=== PATIENT | female | born 1970 | race Caucasian/White ===

== ENCOUNTER 2020-07-04 19:16 | Emergency (ER) | payer OTHER, SELFPAY ==
--- NOTE | ~2020-07-04 | XR_ITS ---
XR tibia fibula RT 2V 07/04/2020 19:50 INDICATION: Right leg pain PROCEDURE: 2 views right tibia/fibula COMPARISON: No prior studies for comparison. FINDINGS: Fracture, dislocation or subluxation is not identified. The soft tissues appear within norm al limits. No foreign bodies are identified. IMPRESSION: 1: NO ACUTE BONE OR JOINT ABNORMALITY IDENTIFIED. Reviewed, dictated and finalized at location A. BONDING AGENT
[2020-07-04 19:25] VITALS: BP 156/90; PULSE 83; RESP 16; TEMP 36.6; O2SAT 100
[2020-07-04 20:02] LABS: Basophils Percent Auto 0.4 % (0.2-1.2); Eosinophils Absolute Auto 0.2 K/mm3 (0-0.3); Eosinophils Percent Auto 1.7 % (0-4.4); Hemoglobin 13.3 g/dL (12.0-15.0); Immature Granulocyte Absolute 0.04 K/mm3 (0.00-0.031); Immature Granulocyte Percent A 0.4 % (0-0.5); Lymphocytes Absolute Auto 2.78 K/mm3 (0.9-3.2); Lymphocytes Percent Auto 28.4 % (18.3-44.2); Mean Corpuscular HGB Conc 34.1 g/dl (32-36); Mean Corpuscular Hemoglobin 29.4 pg (26-34); Mean Corpuscular Volume 86.3 fl (80-100); Mean Platelet Volume 10.6 fl (7.4-10.4); Monocytes Absolute Auto 0.6 K/mm3 (0.1-0.6); Monocytes Percent Auto 6.5 % (2.6-8.5); Neutrophils Absolute Auto 6.1 K/mm3 (1.3-6.7); Neutrophils Percent Auto 62.6 % (45.5-73.1); Platelet Count Result 315 k/mm3 (150-375); Red Blood Count 4.52 M/mm3 (4.2-5.4); Red Cell Distribution Width 12.8 % (11.5-14.5); White Blood Count 9.8 K/mm3 (4.5-10.0)
--- NOTE | 2020-07-04 20:04 | ED.LOWEXIN ---
HPI - Extremity Injury (Lower) General Chief Complaint: Extremity Injury, Lower Stated Complaint: rll pain-dvt Time Seen by Provider: 07/04/20 19:25 Source: RN notes reviewed History of Present Illness HPI Narrative: Patient presents to emergency department from home for right lower extremity pain. Patient states pain began this morning the pain is located over the right anterior lower leg proximal to the ankle and wraps around to the right calf with a feeling of tightness in the calf she denies any trauma or injury denies any wounds or overlying redness she denies any pain in the foot or the knee and no pain with movement of the ankle or the knee she denies any fevers or chills chest pain shortness of breath or any other symptoms patient is concerned about a possible blood clot as she states there is a history of blood clots in her family but denies ever having a blood clot herself Related Data Home Medications Medication Instructions Recorded Confirmed cetirizine 10 mg capsule 10 mg PO DAILY 05/30/19 02/28/20 cholecalciferol (vitamin D3) 50 2,000 unit PO DAILY 05/30/19 02/28/20 mcg (2,000 unit) tablet Allergies Allergy/AdvReac Type Severity Reaction Status Date / Time erythromycin base Allergy Unknown Hives Verified 07/04/20 19:31 hydrocodone Allergy Unknown Rash Verified 07/04/20 19:31 meloxicam Allergy Unknown Hives Verified 07/04/20 19:31 sulfamethizole Allergy Unknown Back Pain Verified 07/04/20 19:31 sulfamethoxazole Allergy Unknown Back Pain Verified 07/04/20 19:31 trimethoprim Allergy Unknown Rash Verified 07/04/20 19:31 nabumetone Allergy Hives Verified 07/04/20 19:31 Review of Systems Review of Systems: Narrative: Gen.: Denies fevers or chills ENT: Denies congestion Respiratory: Denies shortness of breath or cough CV: Denies chest pain or palpitations GI: Denies abdominal pain nausea, emesis Musculoskeletal: See HPI Neuro: Denies numbness, tingling, weakness or focal weakness Skin: Denies rash Except as documented, all other systems reviewed and negative PMFSH Past Medical History Medical History Allergies Asthma Bronchitis Chicken pox Depression Heartburn Herpes HLD (hyperlipidemia) HTN (hypertension) Hyperglycemia Hypothyroidism Obesity Osteoarthritis PCOS (polycystic ovarian syndrome) PVC (premature ventricular contraction) Vitamin D deficiency Surgical History Surgical History (Updated 05/30/19 @ 07:17 by Erin Mei CMA) H/O arthroscopic knee surgery H/O breast biopsy H/O cone biopsy of cervix History of dilatation and curettage History of hysterectomy Family History Family History (Updated 05/30/19 @ 07:19 by Erin Mei CMA) Father Family history of Alzheimer's disease Mother Renal failure Rheumatoid arthritis Renal transplant, status post Social History Social History Smoking status: Former smoker Smoking end date: 07/12/98 Alcohol intake: current Exam Narrative: Exam Narrative: APPEARANCE: No acute distress, nontoxic, resting in bed Eyes: EOMI HEENT: Normocephalic, atraumatic, RESPIRATORY: No respiratory distress MUSCULOSKELETAl: Tender palpation over the right anterior lower leg just proximal to the ankle no swelling or erythema seen no wounds no tenderness of the ankle or knee with full range of motion of both, tender to palpation over the right posterior calf dorsalis pedis pulse 2+ neurovascular intact NEURO: Awake and alert. Following commands, speech normal, no focal deficits SKIN:: Warm, dry. Normal Color no rash or lesions Course Course Emergency Course: Called and discussed with Dr. Pierre presentation work-up agrees with plan for Lovenox with ultrasound and Called and discussed with Dr. Billingsley radiology as well as radiology staff since this is a holiday we will schedule the patient for a 7 AM ultrasound the morning ultrasound
[2020-07-04 20:09] LABS: Partial Thromboplastin Time 25.9 SECONDS (22.3-36.8); Prothrombin Time 13.8 Seconds (11.1-14.7)
[2020-07-04 20:11] LABS: Anion Gap 7 mmol/L (8-16); Blood Urea Nitrogen 14 mg/dL (7-17); Calcium 9.7 mg/dL (8.4-10.2); Carbon Dioxide 30 mmol/L (22-30); Chloride 101 mmol/L (98-107); Estimated CRCL calculation 85 ml/min; Estimated Glomerular Filt Rate > 60; Glucose 153 mg/dL (65-105); Potassium 4.5 mmol/L (3.4-5.0); Sodium 138 mmol/L (137-145)
[2020-07-04] MEDS: ENOXAPARIN 120 MG/0.8 ML SYRINGE SUB-Q (21:12)
[2020-07-04 21:27] VITALS: BP 149/84; PULSE 78; RESP 20; O2SAT 97
== END 2020-07-04 21:29 | disposition home or self-care (01) ==
PROVIDERS: Emergency Provider Emergency Medicine; PCP Internal Medicine
DX: M79.661 Pain in right lower leg (principal); J45.909 Unspecified asthma, uncomplicated; E78.5 Hyperlipidemia, unspecified; I10 Essential (primary) hypertension; E03.9 Hypothyroidism, unspecified; M19.90 Unspecified osteoarthritis, unspecified site; E28.2 Polycystic ovarian syndrome; E55.9 Vitamin D deficiency, unspecified; E66.9 Obesity, unspecified; Z68.42 Body mass index [BMI] 45.0-49.9, adult; Z87.891 Personal history of nicotine dependence
CPT/HCPCS: 36415; 73590; 80048; 85025; 85610; 85730; 93971; 96372; 99284; J1650

== ENCOUNTER 2020-07-05 07:35 | Outpatient (CLI) | payer OTHER, SELFPAY ==
--- NOTE | ~2020-07-05 | US_ITS ---
CORRECTED REPORT REPORT MOVED FROM [id number] [place] [facility] [place] US venous doppler LE RT EXAM DATE: 07/05/2020 08:12 INDICATION: Right calf pain. TECHNIQUE: Multiple grayscale, color flow and Doppler images of the right lower extremity deep venous system were obtained and reviewed. There is no prior study for comparison. FINDINGS: The right common femoral, femoral and profunda veins demonstrate normal color flow, respiratory variation, augmentation and compressibility. Compressibility, color flow confirmed within the right popliteal, posterior tibial, peroneal, and greater saphenous veins. IMPRESSION: 1. No right lower extremity deep venous thrombosis. Reviewed, dictated and finalized at location A. H NP VERONICA
== END 2020-07-05 07:36 | disposition home or self-care (01) ==
LOC: ANHIMG 07:40
PROVIDERS: PCP Internal Medicine; Visit Provider Emergency Medicine
DX: M79.604 Pain in right leg (principal)
CPT/HCPCS: 93971

== ENCOUNTER 2021-08-10 12:00 | Emergency (ER) | payer OTHER, SELFPAY ==
[2021-08-10 12:09] VITALS: BP 147/84; PULSE 77; RESP 16; TEMP 36.2; O2SAT 99
--- NOTE | 2021-08-10 13:01 | ED.GENADULT ---
HPI - General Adult General Chief complaint: Upper Respiratory Infection Stated complaint: Sinus Source: patient Mode of arrival: ambulatory Limitations: no limitations History of Present Illness HPI narrative: Patient is a 51-year-old female presents to the [facility] via POV for evaluation of a sinus problem that began over 1 week ago. Additionally, she reports sinus pain, sinus pressure, intermittent, frontal headaches, and dark yellow sinus drainage. Motrin, Tylenol, and Zyrtec provides some relief. Symptoms are worse in the mornings and with bending forward. She is fully vaccinated against Covid. She is also received Covid booster. Of note, patient tested positive for Covid on 07/25/2021. Related Data Allergies Allergy/AdvReac Type Severity Reaction Status Date / Time erythromycin base Allergy Unknown Hives Verified 08/10/21 12:24 hydrocodone Allergy Unknown Rash Verified 08/10/21 12:24 meloxicam Allergy Unknown Hives Verified 08/10/21 12:24 sulfamethizole Allergy Unknown Back Pain Verified 08/10/21 12:24 sulfamethoxazole Allergy Unknown Back Pain Verified 08/10/21 12:24 trimethoprim Allergy Unknown Rash Verified 08/10/21 12:24 nabumetone Allergy Hives Verified 08/10/21 12:24 Review of Systems Review of Systems: Denies fever, chills, sweats, change in appetite, p.o. intake, severe persistent headaches, sore throat, voice changes, ear pain, ear drainage, dizziness, LOC, cough, wheezing, shortness of breath, abdominal pain, nausea, vomiting, diarrhea, chest pain, and heart palpitations PMFSH Past Medical History Medical History Allergies Asthma Bronchitis Cervical stenosis of spinal canal Chicken pox Depression GERD (gastroesophageal reflux disease) Heartburn Herpes HLD (hyperlipidemia) HTN (hypertension) Hyperglycemia Hypothyroidism Obesity Osteoarthritis PCOS (polycystic ovarian syndrome) PVC (premature ventricular contraction) Vitamin D deficiency Surgical History Surgical History H/O arthroscopic knee surgery H/O breast biopsy H/O cone biopsy of cervix History of dilatation and curettage History of hysterectomy Family History Family History Father Family history of Alzheimer's disease Mother Renal failure Rheumatoid arthritis Renal transplant, status post Social History Social History Social History: Caffeine-tea/soda Smoking status: Former smoker Smoking end date: 07/12/98 Alcohol intake: current Alcohol use details: occasional Comments I have reviewed and agree with the patient's past medical, surgical, social, and family hx as documented by the RN. There is no relevant family history pertinent to the presenting complaint. Exam Narrative: GENERAL: Well-appearing, well-nourished, and in no acute distress. Appears fatigued. HEAD: Normocephalic, atraumatic. Moderate frontal, ethmoid, and maxillary sinus tenderness appreciated upon palpation. No swelling appreciated. EYES: PERRLA and EOMI. No evidence of erythema, swelling, or drainage. ENT: Bilateral external ears and ear canals normal. Bilateral TMs are normal.No TM perforation. Nares patent. No epistaxis. Bilateral turbinates are moderately edematous and erythematous. Moderate amount of yellow mucus noted to bilateral naris. Mucous membranes moist and pink. Uvula is midline without erythema and swelling. No evidence of petechial rash, cobblestoning, lesions, ulcers, erythema, swelling, exudates, peritonsillar abscess, tenting, or drooling. Breath odor and voice normal. NECK: Supple. Bilateral submandibular lymphadenopathy palpated. No nuchal rigidity appreciated. CHEST: Bilateral lung gandhi are clear to auscultation. No respiratory distress. No evidence of cough or pleuritic cp up
== END 2021-08-10 13:10 | disposition home or self-care (01) ==
PROVIDERS: Emergency Provider Nurse Practitioner Family; PCP Internal Medicine
DX: J01.90 Acute sinusitis, unspecified (principal); J45.909 Unspecified asthma, uncomplicated; K21.9 Gastro-esophageal reflux disease without esophagitis; E78.5 Hyperlipidemia, unspecified; I10 Essential (primary) hypertension; E03.9 Hypothyroidism, unspecified; M19.90 Unspecified osteoarthritis, unspecified site; E28.2 Polycystic ovarian syndrome; Z86.16 Personal history of COVID-19; Z87.891 Personal history of nicotine dependence; R12 Heartburn; E55.9 Vitamin D deficiency, unspecified
CPT/HCPCS: 99213; G0463

== ENCOUNTER 2021-08-23 10:14 | Emergency (ER) | payer OTHER, SELFPAY ==
[2021-08-23 10:23] VITALS: BP 153/109; PULSE 81; RESP 16; TEMP 36.3; O2SAT 99
--- NOTE | 2021-08-23 10:57 | ED.GENADULT ---
HPI - General Adult General Chief complaint: Skin/Abscess/Foreign Body Stated complaint: allergic reaction to medication Source: patient Mode of arrival: ambulatory Limitations: no limitations History of Present Illness HPI narrative: Patient presents for evaluation of pruritic rash. She indicates on 07/25/2021 she tested positive for Covid. She developed some sinus congestion and drainage about a week later she started doxycycline. She developed some GI symptoms and contacted her PCP, who then changed her to Augmentin. Approximately 4 days into the medication she developed a pruritic rash to the left forearm and low back. Since that time rash has become more widespread but is still pruritic in nature. No difficulty breathing or swallowing. She has been taking pepcid and zyrtec without considerable improvement. She also tried an unknown topical cream without significant reduction in her itching. Her sinus symptoms are markedly improved. Related Data Home Medications Medication Instructions Recorded Confirmed cetirizine [Zyrtec] 10 mg PO DAILY 08/10/21 08/23/21 cholecalciferol (vitamin D3) 10 mcg PO 3XW 08/10/21 08/23/21 famotidine [Pepcid] 20 mg PO DAILY 08/10/21 08/23/21 Allergies Allergy/AdvReac Type Severity Reaction Status Date / Time meloxicam Allergy Severe Swelling Verified 08/23/21 10:21 of Lip/Tongue/Throat erythromycin base Allergy Mild Hives Verified 08/23/21 10:21 hydrocodone Allergy Mild Rash Verified 08/23/21 10:21 nabumetone Allergy Mild Hives Verified 08/23/21 10:21 sulfamethizole Allergy Mild Back Pain Verified 08/23/21 10:21 sulfamethoxazole Allergy Mild Back Pain Verified 08/23/21 10:21 trimethoprim Allergy Mild Rash Verified 08/23/21 10:21 amoxicillin [From Augmentin] Allergy Rash Verified 08/23/21 10:21 clavulanic acid Allergy Rash Verified 08/23/21 10:21 [From Augmentin] Review of Systems Review of Systems: CONSTITUTIONAL: Denies fever, chills, or sweats. EYES: Denies visual changes, redness, or discharge. ENT: Denies rhinorrhea, congestion, sore throat, or otalgia. CARDIOVASCULAR: Denies chest pain, palpitations, or edema. RESPIRATORY: Denies cough or dyspnea. GASTROINTESTINAL: Denies abdominal pain, nausea, vomiting, or diarrhea. GENITOURINARY: Denies dysuria or hematuria. SKIN: Reports pruritic rash to back and BLE MUSCULOSKELETAL: Denies back pain, joint pain, or myalgia. NEUROLOGIC: Denies headache, numbness, dizziness, or weakness. PSYCHIATRIC: Denies anxiety or depression. [facility] Past Medical History Medical History Allergies Asthma Bronchitis Cervical stenosis of spinal canal Chicken pox Depression GERD (gastroesophageal reflux disease) Heartburn Herpes HLD (hyperlipidemia) HTN (hypertension) Hyperglycemia Hypothyroidism Obesity Osteoarthritis PCOS (polycystic ovarian syndrome) PVC (premature ventricular contraction) Vitamin D deficiency Surgical History Surgical History H/O arthroscopic knee surgery H/O breast biopsy H/O cone biopsy of cervix History of dilatation and curettage History of hysterectomy Family History Family History Father Family history of Alzheimer's disease Mother Renal failure Rheumatoid arthritis Renal transplant, status post Social History Social History Social History: Caffeine-tea/soda Smoking status: Former smoker Smoking end date: 07/12/98 Alcohol intake: current Alcohol use details: occasional Exam Narrative: GENERAL: Well-appearing, well-nourished, and in no acute distress. HEAD: Normocephalic, atraumatic. EYES: PERRLA and EOMI. ENT: Nares clear, no rhinorrhea or epistaxis. Mucous membranes moist. Oropharynx without tonsillar hypertrophy exudate or other lesion
[2021-08-23] MEDS: methylPREDNISolone SOD SUCC 125 MG VIAL IM (11:04)
== END 2021-08-23 11:24 | disposition home or self-care (01) ==
PROVIDERS: Emergency Provider Nurse Practitioner; PCP Internal Medicine
DX: R21 Rash and other nonspecific skin eruption (principal); T78.40XA Allergy, unspecified, initial encounter; Z87.891 Personal history of nicotine dependence; J45.909 Unspecified asthma, uncomplicated; K21.9 Gastro-esophageal reflux disease without esophagitis; E78.5 Hyperlipidemia, unspecified; I10 Essential (primary) hypertension; E03.9 Hypothyroidism, unspecified; M19.90 Unspecified osteoarthritis, unspecified site; E28.2 Polycystic ovarian syndrome; E55.9 Vitamin D deficiency, unspecified; M48.02 Spinal stenosis, cervical region
CPT/HCPCS: 96372; 99213; G0463; J2930

== ENCOUNTER → 2022-03-11 10:22 | Outpatient (CLI) | payer OTHER, SELFPAY ==
--- NOTE | ~2022-03-11 | XR_ITS ---
XR ankle LT min 3V DATE: 03/11/2022 10:37 INDICATION: Left ankle pain TECHNIQUE: 4 views COMPARISON: None FINDINGS: Plantar and posterior calcaneal enthesopathy. No fracture or dislocation of the ankle or disruption of the ankle mortise. No periosteal reaction or bone destruction. IMPRESSION: Plantar and posterior calcaneal enthesopathy Reviewed, dictated and finalized at location B.
== END ==
PROVIDERS: PCP Clinical Nurse Specialist; Visit Provider Clinical Nurse Specialist
DX: M25.572 Pain in left ankle and joints of left foot (principal); M77.32 Calcaneal spur, left foot
CPT/HCPCS: 73610

== ENCOUNTER 2022-04-11 16:25 | Emergency (ER) | payer OTHER, SELFPAY ==
--- NOTE | 2022-04-11 16:28 | ED.URI ---
HPI - URI/Sore Throat General Chief Complaint: Upper Respiratory Infection Stated Complaint: drainage,cough,fever Time Seen by Provider: 04/11/22 16:47 Source: patient and RN notes reviewed Mode of arrival: ambulatory Limitations: no limitations History of Present Illness HPI Narrative: 51-year-old female presents concern for 3-week history of cough, chest congestion, nasal congestion. Reports she took a Z-Rogelio approximately 10 days into her illness that was prescribed to her over the phone by her physician. She denies that the antibiotic helped her symptoms. She reports she used her albuterol inhaler last night because she felt like she could not get a full breath. She reports feeling fatigued and fuzzy . She has not taken any [id number] medications or interventions. MD elicited complaint: cough and nasal congestion Related Data Home Medications Medication Instructions Recorded Confirmed cetirizine 10 mg tablet (Zyrtec) 10 mg PO DAILY 08/10/21 04/01/22 cholecalciferol (vitamin D3) 10 10 mcg PO 3XW 08/10/21 04/01/22 mcg (400 unit) capsule famotidine 20 mg tablet (Pepcid) 20 mg PO DAILY 08/10/21 04/01/22 Allergies Allergy/AdvReac Type Severity Reaction Status Date / Time meloxicam Allergy Severe Swelling Verified 04/01/22 10:53 of Lip/Tongue/Throat erythromycin base Allergy Mild Hives Verified 04/01/22 10:53 hydrocodone Allergy Mild Rash Verified 04/01/22 10:53 nabumetone Allergy Mild Hives Verified 04/01/22 10:53 sulfamethizole Allergy Mild Back Pain Verified 04/01/22 10:53 sulfamethoxazole Allergy Mild Back Pain Verified 04/01/22 10:53 trimethoprim Allergy Mild Rash Verified 04/01/22 10:53 amoxicillin [From Augmentin] Allergy Rash Verified 04/01/22 10:53 clavulanic acid Allergy Rash Verified 04/01/22 10:53 [From Augmentin] Review of Systems Review of Systems: CONSTITUTIONAL: Reports malaise. Denies chills, sweats, or fever. EYES: Denies visual changes, redness, or discharge. ENT: Reports rhinorrhea, congestion. Denies sinus pain, otalgia and sore throat. CARDIOVASCULAR: Denies chest pain, palpitations, or edema. RESPIRATORY: Reports productive cough. Denies dyspnea. GASTROINTESTINAL: Denies abdominal pain, nausea, vomiting, diarrhea SKIN: Denies rash or itching. MUSCULOSKELETAL: Denies myalgia. NEUROLOGIC: Denies headache. All systems reviewed & are unremarkable except as noted in HPI and below PMFSH Past Medical History Medical History Allergies Asthma Bronchitis Cervical stenosis of spinal canal Chicken pox Depression GERD (gastroesophageal reflux disease) Heartburn Herpes HLD (hyperlipidemia) HTN (hypertension) Hyperglycemia Hypothyroidism Obesity Osteoarthritis PCOS (polycystic ovarian syndrome) PVC (premature ventricular contraction) Vitamin D deficiency Surgical History Surgical History H/O arthroscopic knee surgery H/O breast biopsy H/O cone biopsy of cervix History of dilatation and curettage History of hysterectomy Family History Family History Father Family history of Alzheimer's disease Mother Renal failure Rheumatoid arthritis Renal transplant, status post Social History Social History Social History: Caffeine-tea/soda Smoking status: Former smoker Smoking end date: 07/12/98 Alcohol intake: current Alcohol use details: occasional Comments At time of signature, agree with nursing past medical, surgical, social and family history. There is no relevant family history pertinent to the presenting complaint Exam Narrative: GENERAL: Well-appearing, well-nourished, and in no acute distress. HEAD: Normocephalic EYES: PERRLA, conjunctivae clear ENT: Nares clear, turbinates edematous and erythematous. Mucous membranes moist. TM pea
[2022-04-11 16:36] VITALS: BP 139/99; PULSE 92; RESP 20; TEMP 36.4; O2SAT 98
== END 2022-04-11 16:55 | disposition home or self-care (01) ==
PROVIDERS: Emergency Provider Nurse Practitioner; PCP Internal Medicine
DX: J40 Bronchitis, not specified as acute or chronic (principal); Z87.891 Personal history of nicotine dependence; J45.909 Unspecified asthma, uncomplicated; K21.9 Gastro-esophageal reflux disease without esophagitis; E78.5 Hyperlipidemia, unspecified; I10 Essential (primary) hypertension; M19.90 Unspecified osteoarthritis, unspecified site; E28.2 Polycystic ovarian syndrome; E66.9 Obesity, unspecified; Z68.36 Body mass index [BMI] 36.0-36.9, adult; E55.9 Vitamin D deficiency, unspecified
CPT/HCPCS: 99213; G0463

== ENCOUNTER 2022-05-14 15:35 | Observation (INO) | payer OTHER, SELFPAY ==
[2022-05-14] VITALS (24 sets, daily range): BP systolic 126–186; BP diastolic 67–103; PULSE 63–95; RESP 11–20; TEMP 37.1; O2SAT 96–100
--- NOTE | ~2022-05-14 | NM_ITS ---
EXAMINATION: NM felicia stress w perfusion DATE: 05/15/2022 12:31 INDICATION: Chest pain. TECHNIQUE: Rest images were obtained following intravenous administration of 11.7 mCi Tc99m tetrofosm in (Myoview). The patient was infused intravenously with Lexiscan (regadenoson). Then, 34.5 mCi Tc99m tetrofosmin (Myoview) was administered intravenously, and supine and prone stress images were obtain ed. Data was reconstructed into short axis and horizontal and vertical long axis SPECT images. Gated SPECT images were also obtained. COMPARISON: None. FINDINGS: There is no definite reversible or fixed perfusion abnormality to suggest ischemia or infar ction. There is no segmental wall motion abnormality. Left ventricular ejection fraction measures > 70%. IMPRESSION: 1. No definite ischemia or infarct. 2. Normal left ventricular ejection fraction measuring >70%. Reviewed, dictated and finalized at location A.
--- NOTE | ~2022-05-14 | XR_ITS ---
EXAMINATION: XR chest 2V DATE: 05/14/2022 16:04 INDICATION: Left arm and neck pain. TECHNIQUE: Frontal and lateral views of the chest were obtained. COMPARISON: Chest 2 views 07/18/2012 FINDINGS: The chest demonstrates clear lungs without pneumonia, pleural effusion, or pneumothorax. Th e heart size is normal. IMPRESSION: 1. No acute cardiopulmonary disease. Reviewed, dictated and finalized at location A.
--- NOTE | 2022-05-14 15:49 | ECG_ITS ---
Measurements Intervals [place] Rate: 71 P: 34 GA: 149 QRS: 11 QRSD: 78 T: 25 QT: 378 QTc: 413 Interpretive Statements SINUS RHYTHM LOW QRS VOLTAGE IN PRECORDIAL LEADS BORDERLINE T WAVE ABNORMALITY- ANT/INF LEADS BORDERLINE ECG NO PREVIOUS ECG AVAILABLE FOR COMPARISON Electronically Signed On 05-14-2022 15:56:26 CDT by Frandy Johnson D.O.
--- NOTE | 2022-05-14 16:33 | ED.GENADULT ---
HPI - General Adult General Chief complaint: Unspecified Stated complaint: pain radiating from neck down arm Time Seen by Provider: 05/14/22 16:04 History of Present Illness HPI narrative: Patient is a 51-year-old female with a history of hypertension, hyperlipidemia, PCOS presenting with chest pain. Patient states that she was at work when she first noticed some pain in her left upper arm that radiated to her elbow and left shoulder. States that she then developed pain in the left side of her chest and left neck. States it was associated with some lightheadedness. 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 She was advised to come to the ER for further evaluation. Currently, she states that she still has mild intermittent chest pain. States that she continues to have pain in her left upper arm. Denies fevers, shortness of breath, abdominal pain, nausea or vomiting, dysuria, diarrhea, leg swelling. Related Data Home Medications Medication Instructions Recorded Confirmed cetirizine 10 mg tablet (Zyrtec) 10 mg PO HS 08/10/21 05/15/22 cholecalciferol (vitamin D3) 10 10 mcg PO 3XW 08/10/21 05/15/22 mcg (400 unit) capsule famotidine 20 mg tablet (Pepcid) 20 mg PO HS 08/10/21 05/15/22 Motrin IB 250.125 mg PO HS 05/15/22 05/15/22 metformin 500 mg tablet,extended 500 mg PO HS 05/15/22 05/15/22 release 24 hr simvastatin 40 mg tablet 40 mg PO HS 05/15/22 05/15/22 Allergies Allergy/AdvReac Type Severity Reaction Status Date / Time meloxicam Allergy Severe Swelling Verified 04/01/22 10:53 of Lip/Tongue/Throat erythromycin base Allergy Mild Hives Verified 04/01/22 10:53 hydrocodone Allergy Mild Rash Verified 04/01/22 10:53 nabumetone Allergy Mild Hives Verified 04/01/22 10:53 sulfamethizole Allergy Mild Back Pain Verified 04/01/22 10:53 sulfamethoxazole Allergy Mild Back Pain Verified 04/01/22 10:53 trimethoprim Allergy Mild Rash Verified 04/01/22 10:53 amoxicillin [From Augmentin] Allergy Rash Verified 04/01/22 10:53 clavulanic acid Allergy Rash Verified 04/01/22 10:53 [From Augmentin] Review of Systems Review of Systems: All systems reviewed & are unremarkable except as noted in HPI and below PMFSH Past Medical History Medical History (Updated 05/16/22 @ 14:09 by No Ford MD) Allergies Asthma Bronchitis Cervical stenosis of spinal canal Chicken pox Depression GERD (gastroesophageal reflux disease) Heartburn Herpes HLD (hyperlipidemia) HTN (hypertension) Hyperglycemia Hypothyroidism Obesity Osteoarthritis PCOS (polycystic ovarian syndrome) PVC (premature ventricular contraction) Vitamin D deficiency Surgical History Surgical History H/O arthroscopic knee surgery H/O breast biopsy H/O cone biopsy of cervix History of dilatation and curettage History of hysterectomy Family History Family History Father Family history of Alzheimer's disease Mother Renal failure Rheumatoid arthritis Renal transplant, status post Social History Social History Social History: Caffeine-tea/soda Smoking packs per day: 0.5 Smoking cigarettes per day: 10.0 Years smoked: 10 Smoking pack-years: 5.00 Smoking status: Former smoker Tobacco type: cigarettes Second hand tobacco smoke exposure: No Smoking end date: 07/12/98 Alcohol intake: former Alcohol use details: occasional Substance use: never Has the Lack of Transportation Kept You From Medical Appointments or From Getting Medications?: No Within the Past 12 Months, Were You Worried Whether Your Food Would Run Out Before You Got Money to Buy More?: Never True What is Your Housing Situation Today?: I Have Housing Are You Worried That in the Next 2 Months, You May Not Have Your Own Housing to Live In?: N
[2022-05-14 17:00] LABS: Basophils Percent Auto 0.5 % (0.2-1.2); Eosinophils Absolute Auto 0.2 K/mm3 (0-0.3); Eosinophils Percent Auto 2.4 % (0-4.4); Hematocrit 38.8 % (37.0-47.0); Hemoglobin 12.9 g/dL (12.0-15.0); Immature Granulocyte Absolute 0.02 K/mm3 (0.00-0.031); Immature Granulocyte Percent A 0.2 % (0-0.5); Lymphocytes Absolute Auto 2.73 K/mm3 (0.9-3.2); Lymphocytes Percent Auto 31.6 % (18.3-44.2); Mean Corpuscular HGB Conc 33.2 g/dl (32-36); Mean Corpuscular Hemoglobin 28.9 pg (26-34); Mean Corpuscular Volume 86.8 fl (80-100); Mean Platelet Volume 10.8 fl (7.4-10.4); Monocytes Absolute Auto 0.5 K/mm3 (0.1-0.6); Neutrophils Absolute Auto 5.1 K/mm3 (1.3-6.7); Neutrophils Percent Auto 59.3 % (45.5-73.1); Platelet Count Result 326 k/mm3 (150-375); Red Blood Count 4.47 M/mm3 (4.2-5.4); Red Cell Distribution Width 13.2 % (11.5-14.5); White Blood Count 8.6 K/mm3 (4.5-10.0)
[2022-05-14 17:10] LABS: Partial Thromboplastin Time 26.3 SECONDS (22.3-36.8); Prothrombin Time 12.5 Seconds (11.1-14.7)
[2022-05-14 17:13] LABS: Alanine Aminotransferase 32 U/L (6-35); Albumin Level 4.5 g/dL (3.5-5.1); Alkaline Phosphatase 60 U/L (38-126); Anion Gap 11 mmol/L (8-16); Aspartate Amino Transferase 42 U/L (14-36); Blood Urea Nitrogen 14 mg/dL (7-17); Calcium 9.1 mg/dL (8.4-10.2); Carbon Dioxide 27 mmol/L (22-30); Chloride 100 mmol/L (98-107); Estimated CRCL calculation 93 ml/min; Estimated Glomerular Filt Rate > 60; Glucose 144 mg/dL (65-110); Lipase 151 U/L (23-300); Potassium 4.4 mmol/L (3.4-5.0); Sodium 138 mmol/L (137-145)
[2022-05-14 17:24] LABS: Troponin I < 0.012 ng/mL (0.000-0.034)
--- NOTE | 2022-05-14 18:40 | PC.NURSE ---
Patient denies pain after IV Tylenol but does c/o mild nausea. Declines any nausea pain medication at this time. Patient encouraged to let me know if she changes her mind.
--- NOTE | 2022-05-14 19:14 | PC.NURSE ---
Patient report given to KRISHNA Martinez. All questions answered and care of patient transferred.
[2022-05-14 19:45] LABS: Troponin I < 0.012 ng/mL (0.000-0.034)
--- NOTE | 2022-05-14 21:04 | PM.IMHP ---
H&P: HPI History of Present Illness Date/Time: 05/14/22 21:04 Chief Complaint: chest pain Narrative: This is a 51-year-old female with past medical history significant for type diabetes mellitus, hypertension, dyslipidemia, morbid obesity, gastroesophageal reflux disease, polycystic ovarian syndrome. patient presents to the emergency room due to chest pain localized to the precordial area with radiation to the jaw shoulder and arm on the left side accompanied by lightheadedness she rates it at for 4/10 intensity,has been present for the last several hours, denies any nausea, vomiting, abdominal pain, no syncope, or near syncope, she has had bilateral ankle swelling, no PND, no orthopnea, no fevers, no rigors, no chills. preliminary workup has been essentially nonrevealing. patient has been admitted for further evaluation management and treatment. an EKG was reported as: SINUS RHYTHM LOW QRS VOLTAGE IN PRECORDIAL LEADS BORDERLINE T WAVE ABNORMALITY- ANT/INF LEADS BORDERLINE ECG NO PREVIOUS ECG AVAILABLE FOR COMPARISON Review of Systems Review of Systems: Precordial chest pain. Constitutional: Constitutional: Denies chills, Denies fatigue, Denies fever(s), Denies malaise, Denies night sweats, Denies poor appetite and Denies weakness Eyes: Eyes: Denies change in vision ENT: Denies dysphagia, Denies vertigo, Denies dizziness and Denies odynophagia Cardiovascular: Cardiovascular: Reports chest pain, Denies syncope, Denies rapid heart rate, Reports pedal edema, Denies irregular heart rhythm, Reports lightheadedness, Denies palpitations, Denies dyspnea, Denies dyspnea on exertion and Denies orthopnea Respiratory: Respiratory: Denies chest congestion, Denies cough, Denies pain on inspiration, Denies dyspnea and Denies wheezing Gastrointestinal: Gastrointestinal: Denies abdominal pain, Denies dyspepsia, Denies heartburn, Denies diarrhea, Denies nausea and Denies vomiting Genitourinary: Genitourinary: Denies dysuria Musculoskeletal: Musculoskeletal: Denies myalgias, Denies arthralgias and Denies muscle weakness Integumentary/Breasts: Skin/Breast: Denies rash Neurologic: Denies focal weakness and Denies Sensory deficit (Neuro) Psychiatric: Psychiatric: Reports no additional psychiatric complaints and Reports as per HPI Endocrine: Endocrine: Denies cold intolerance, Denies flushing, Denies heat intolerance, Denies polyphagia, Denies polydipsia and Denies palpitations Hematologic/Lymphatic: Hematologic/Lymphatic: Reports no additional hematologic/lymphatic complaints and Reports as per HPI Allergic/Immunologic: Allergic/Immunologic: Reports no additional allergic/immunologic complaints and Reports as per HPI [facility] Past Medical History Medical History (Updated 05/15/22 @ 02:34 by Robin Triplett MD) Allergies Asthma Bronchitis Cervical stenosis of spinal canal Chicken pox Depression GERD (gastroesophageal reflux disease) Heartburn Herpes HLD (hyperlipidemia) HTN (hypertension) Hyperglycemia Hypothyroidism Obesity Osteoarthritis PCOS (polycystic ovarian syndrome) PVC (premature ventricular contraction) Vitamin D deficiency Surgical History Surgical History H/O arthroscopic knee surgery H/O breast biopsy H/O cone biopsy of cervix History of dilatation and curettage History of hysterectomy Family History Family History Father Family history of Alzheimer's disease Mother Renal failure Rheumatoid arthritis Renal transplant, status post Social History Social History Social History: Caffeine-tea/soda Smoking packs per day: 0.5 Smoking cigarettes per day: 10.0 Years smoked: 10 Smoking pack-years: 5.00 Smoking status: Former smoker Tobacco type: cigarettes Second hand tobacco smoke exposure: No Smoking end date: 07/12/98
[2022-05-14 21:21] LABS: SARS-CoV-2 RNA PCR Negative
[2022-05-14 22:17] LABS: Troponin I < 0.012 ng/mL (0.000-0.034)
[2022-05-15] VITALS (14 sets, daily range): BP systolic 131–155; BP diastolic 59–85; PULSE 67–109; RESP 16–18; TEMP 36–36.6; O2SAT 93–99; BMI 44.9
--- NOTE | 2022-05-15 | ECHO_ITS ---
Patient Info Name: Suzan Polk Age: 51 years : 1970 Gender: Female Ht: 65 in Wt: 269 lbs BSA: 2.43 m2 HR: 81 bpm BP: 155 / 82 mmHg Heart Rhythm: Sinus Rhythm Technical Quality: Fair Exam Date: 05/15/2022 2:37 PM Exam Location: [facility] Patient Status: Outpatient Admit Date: 05/14/2022 Staff Ordering Physician: Carmina Barriga MD Balancer Scale: Jenn Mckenzie RDCS Attending Provider: Robin Triplett MD Exam Type: CA echo dop color flow w con Study Info Indications R07.9 - Chest pain, unspecified Complete two-dimensional, color flow and Doppler transthoracic echocardiogram is performed with contrast to opacify the left ventricle and to improve the deliniation of the left ventricle endocardial borders. Contrast/Agitated Saline Contrast/Ag. Saline: Definity Amount: 3.00 ml Administered By: Jenn Mckenzie RDCS Existing IV Access: Yes IV Access Condition: patent with no signs of infiltration Summary 1. Left ventricular chamber dimension is normal. 2. Definity contrast administered improved wall motion interpretation. 3. Left ventricular systolic function is normal, estimated at 60-65%. 4. The left ventricular diastolic function is grade I diastolic dysfunction. 5. E/e' 6 is not elevated. 6. No pulmonary hypertension, estimated pulmonary arterial systolic pressure is 13 mmHg. Left Ventricle E/e' 6 is not elevated. Definity contrast administered improved wall motion interpretation. Left ventricular chamber dimension is normal. Left ventricular systolic function is normal, estimated at 60-65%. The left ventricular diastolic function is grade I diastolic dysfunction. Right Ventricle Right ventricular systolic function is normal and with normal TAPSE 2.2 cm. Right ventricular chamber dimension is normal. Left Atria Left atrial chamber dimension is normal. Right Atria Right atrial chamber dimension is normal. Aortic Valve The aortic valve is trileaflet. There is no aortic valve stenosis. There is no aortic valve regurgitation. Pulmonic Valve There is no pulmonic regurgitation. Mitral Valve There is no mitral valve stenosis. There is no mitral valve regurgitation. Tricuspid Valve There is no tricuspid valve regurgitation. No pulmonary hypertension, estimated pulmonary arterial systolic pressure is 13 mmHg. Pericardium/Pleural There is no pericardial effusion. Inferior Vena Cava Normal inferior vena cava with >50% collapse upon inspiration consistent with normal right atrial pressure, 5 mmHg. Aorta The aortic root size at the sinus of Valsalva is normal. Left Ventricular Outflow Tract Name Value Normal LVOT 2D LVOT Diameter 1.97 cm LVOT Doppler LVOT Peak Gradient 5 mmHg LVOT Mean Gradient 2 mmHg LVOT VTI 21.98 cm LVOT VTI/AV VTI Ratio 0.76 LVOT Stroke Volume 66.80 ml LVOT CO 4.65 l/min LVOT CI
--- NOTE | 2022-05-15 00:32 | EST_ITS ---
Patient Info Name: Suzan Polk Age: 51 years : 1970 Gender: Female Ht: 65 in Wt: 270 lbs BSA: 2.44 m2 HR: 75 bpm BP: 147 / 84 mmHg Heart Rhythm: Sinus Rhythm Exam Date: 05/15/2022 11:15 AM Exam Location: [facility] Stress Patient Status: Inpatient Admit Date: 05/14/2022 Staff Ordering Physician: Robin Triplett MD Attending Provider: Robin Triplett MD Exercise Technologist: Meli Dolan CT Exercise Physician: Frandy Johnson DO Exam Type: CA stress felicia w NM Study Info Indications R07.9 - Chest pain, unspecified A regadenoson stress test was performed. Summary 1. 1. Negative lexiscan stress test for ischemic ST changes by ECG criteria. 2. 2. Baseline hypertension. 3. 3. Nuclear scan to follow and will be reported separately. Please correlate with it. 4. 4. Patient informed of the above results. Protocol: Lexiscan Stress ECG Details Stage: REST Duration (min): 1 min : 27 sec HR (bpm): 81 SBP (mmHg): 155 DBP (mmHg): 89 Stage: REST Duration (min): 9 min : 8 sec HR (bpm): 94 SBP (mmHg): 155 DBP (mmHg): 89 Stage: STAGE 1 Duration (min): 1 min : 0 sec HR (bpm): 126 SBP (mmHg): 147 DBP (mmHg): 84 Stage: RECOVERY Duration (min): 1 min : 0 sec HR (bpm): 116 SBP (mmHg): 147 DBP (mmHg): 84 Stage: RECOVERY Duration (min): 2 min : 0 sec HR (bpm): 112 SBP (mmHg): 147 DBP (mmHg): 84 Stage: RECOVERY Duration (min): 3 min : 0 sec HR (bpm): 101 SBP (mmHg): 142 DBP (mmHg): 79 Stage: RECOVERY Duration (min): 4 min : 0 sec HR (bpm): 98 SBP (mmHg): 142 DBP (mmHg): 79 Stage: RECOVERY Duration (min): 4 min : 16 sec HR (bpm): 93 SBP (mmHg): 142 DBP (mmHg): 79 Rest HR: 94 bpm Peak HR: 126 bpm Rest Sys BP: 155 mmHg Peak Sys BP: 147 mmHg Max Pred HR: 167 bpm % Max Pred HR: 75 % Target HR: 142 bpm Max RPP: 18,522 bpm*mmHg Termination Reason: Completed protocol Cardiac Symptoms: SOB, headache, leg heaviness Total Time: 1 min : 0 sec Rest Mosley BP: 89 mmHg Peak Mosley BP: 84 mmHg Total Dose: 0.4 mg Resting ECG Sinus rhythm, borderline T wave in diffuse leads. Stress ECG No ST changes. Arrhythmias None. PVC's. Report Signatures
--- NOTE | 2022-05-15 01:10 | ADMGEN ---
This patient, Suzan Polk, was admitted to IMU Room 203-01. Patient/family oriented to hospital policies and general routines including ID bracelet, bed and alarms, visiting hours, pain management, procedures, bathroom and other care routines, personal items, smoking policy, room service/diet, and visiting hours. Information on how to activate the Rapid Response Team has been discussed. Patient/Family are encouraged to report perceived risks to care and to ask questions if they do not understand what they are told or what they should do.
[2022-05-15] MEDS: METOPROLOL SUCCINATE EXT REL 50 MG TABCR PO (07:48)
[2022-05-15] MEDS: ENOXAPARIN 40 MG/0.4 ML SYRINGE SUB-Q (09:06)
[2022-05-15 13:02] LABS: Glucose Point of Care 145 mg/dl (65-105)
[2022-05-15] MEDS: PERFLUTREN LIPID MICROSPHERES 1.5 ML VIAL DILUTED TO 10 ML TOTAL VOLUME IV PUSH (15:06)
--- NOTE | 2022-05-15 15:15 | PM.DS ---
DS: Admitting Diagnosis Discharge Date 05/15/2022 Admitting Diagnosis chest pain DS: Discharge Diagnosis Discharge Diagnosis (1) Chest pain: Code(s): R07.9 - Chest pain, unspecified Status: Acute Assessment and Plan: admit to IMU serial cardiac enzymes EKG reviewed stress test in a.m. supportive care (2) HTN (hypertension): Qualifiers: Hypertension type: essential hypertension Qualified Code(s): I10 - Essential (primary) hypertension Code(s): I10 - Essential (primary) hypertension Status: Acute Assessment and Plan: continue home meds continue to monitor (3) Type 2 diabetes mellitus: Qualifiers: Diabetes mellitus assistant terminal manager insulin use: without assistant terminal manager use Diabetes mellitus complication status: without complication Qualified Code(s): E11.9 - Type 2 diabetes mellitus without complications Code(s): E11.9 - Type 2 diabetes mellitus without complications Status: Acute Assessment and Plan: holding metformin Accu-Cheks AC and HS insulin sliding scale as needed 1800 calorie carb consistent diet (4) PCOS (polycystic ovarian syndrome): Code(s): E28.2 - Polycystic ovarian syndrome Status: Acute Assessment and Plan: follow-up in outpatient setting (5) GERD (gastroesophageal reflux disease): Qualifiers: Esophagitis presence: without esophagitis Qualified Code(s): K21.9 - Gastro-esophageal reflux disease without esophagitis Code(s): K21.9 - Gastro-esophageal reflux disease without esophagitis Status: Acute Assessment and Plan: PPI as needed DS: Summary Hospital Course Reason for hospitalization: chest pain Narrative: ?This is a 51-year-old female with past medical history significant for type diabetes mellitus, hypertension, dyslipidemia, morbid obesity, gastroesophageal reflux disease, polycystic ovarian syndrome. patient presents to the emergency room due to chest pain localized to the precordial area with radiation to the jaw shoulder and arm on the left side accompanied by lightheadedness she? rates it? at for 4/10 intensity,has been present for the last several hours, denies any nausea, vomiting, abdominal pain, no syncope, or near syncope, she has had bilateral ankle swelling, no PND, no orthopnea, no fevers, no rigors, no chills. preliminary workup has been essentially nonrevealing. patient has been admitted for further evaluation management and treatment. Hospital Course: 51-year-old female presented with complaint of chest pain 3 sets of cardiac enzymes are negative there are no acute changes on EKG to further evaluate patient had a cardiac echo essentially normal also patient had Lexiscan stress test no ischemic event, is clinically stable will discharge the patient today. Time Spent with Patient Time attestation: Total time spent providing and/or coordinating discharge services: DS: Data Data Completed and Pending Labs on day of discharge: Labs from last 24 hours 05/15/22 05/14/22 05/14/22 12:52 21:49 20:32 WBC RBC Hgb Hct MCV MCH MCHC RDW Plt Count MPV Immature Gran % (Auto) Neut % (Auto) Lymph % (Auto) Aiken % (Auto) Eos % (Auto) Baso % (Auto) Lymph # (Auto) Aiken # (Auto) Eos # (Auto) Baso # (Auto) Abs Immat Gran (auto) Absolute Neuts (auto) Absolute Nucleated RBC Nucleated RBC % PT INR APTT Sodium Potassium Chloride Carbon Dioxide Anion Gap BUN Creatinine Estim Creat Clear Calc Estimated GFR Glucose POC Capillary Glucose 145 H Calcium Total Bilirubin AST ALT Alkaline Phosphatase Troponin I < 0.012 Total Protein Albumin Lipase SARS-CoV-2 RNA (RT-PCR) Negative 05/14/22 05/14/22 05/14/22 18:57 15:55 15:55 WBC RBC Hgb Hct MCV MCH MCHC RDW Plt Count
--- NOTE | 2022-05-15 15:22 | IVDEFINITY ---
Prior to administration of IV Definity the patient was educated on the risks and benefits of the imaging enhancing agent including potential adverse side effects. The patient verbalized understanding. Allergies were verified. No exclusion criteria were identified and at least one of the following inclusion criteria were met: 1) physician request, 2) patient technically difficult to image (per the [place] [employer] of Echocardi[employer] guidelines of two or more segments not discernable within the apical view), or 3) questionable left ventricular function. ?
== END 2022-05-15 17:19 | disposition home or self-care (01) ==
LOC: ANHED 16:08 → ANHIMU 05-15 01:30
PROVIDERS: Admitting Provider Internal Medicine; Emergency Provider Emergency Medicine; PCP Internal Medicine; Visit Provider Family Medicine
DX: R07.9 Chest pain, unspecified (principal); I11.9 Hypertensive heart disease without heart failure; E11.65 Type 2 diabetes mellitus with hyperglycemia; E28.2 Polycystic ovarian syndrome; K21.9 Gastro-esophageal reflux disease without esophagitis; M25.473 Effusion, unspecified ankle; M25.472 Effusion, left ankle; J45.909 Unspecified asthma, uncomplicated; M48.02 Spinal stenosis, cervical region; F32.A Depression, unspecified; R12 Heartburn; E78.5 Hyperlipidemia, unspecified; E55.9 Vitamin D deficiency, unspecified; Z20.822 Contact with and (suspected) exposure to COVID-19; M19.90 Unspecified osteoarthritis, unspecified site; E66.01 Morbid (severe) obesity due to excess calories; Z68.41 Body mass index [BMI] 40.0-44.9, adult; Z79.1 Long term (current) use of non-steroidal anti-inflammatories (NSAID); Z79.84 Long term (current) use of oral hypoglycemic drugs; Z79.899 Other long term (current) drug therapy; Z84.89 Family history of other specified conditions; Z84.1 Family history of disorders of kidney and ureter; Z87.891 Personal history of nicotine dependence
CPT/HCPCS: 36415; 71046; 78452; 80053; 82948; 83690; 84484; 85025; 85610; 85730; 93005; 93017; 96365; 96372; 96374; 99285; A9270; A9502; C8929; G0378; J0131; J1650; J2785; Q9957; U0003; U0005

== ENCOUNTER 2022-06-18 08:25 | Outpatient (CLI) | payer OTHER, SELFPAY ==
[2022-06-18 19:09] LABS: Hemoglobin A1C 6.5 % (<5.7)
== END 2022-06-18 08:26 | disposition home or self-care (01) ==
LOC: ANHGOSHLAB 08:28
PROVIDERS: PCP Internal Medicine; Visit Provider Nurse Practitioner
DX: E03.9 Hypothyroidism, unspecified (principal); E11.9 Type 2 diabetes mellitus without complications
CPT/HCPCS: 36415; 83036; 84443

== ENCOUNTER 2022-06-25 09:20 | Outpatient (CLI) | payer OTHER, SELFPAY ==
[2022-06-25 21:08] LABS: Anion Gap 8 mmol/L (8-16); Blood Urea Nitrogen 11 mg/dL (7-17); Calcium 9.5 mg/dL (8.4-10.2); Carbon Dioxide 27 mmol/L (22-30); Chloride 104 mmol/L (98-107); Cholesterol 163 mg/dL (0-200); Estimated Glomerular Filt Rate > 60; Glucose 98 mg/dL (65-110); HDL Direct 33 mg/dL; Potassium 4.5 mmol/L (3.4-5.0); Sodium 139 mmol/L (137-145); Triglycerides 138 mg/dL (<150)
[2022-06-25 21:21] LABS: LDL Cholesterol Direct 88 mg/dL
== END 2022-06-25 09:21 | disposition home or self-care (01) ==
LOC: ANHGOSHLAB 09:21
PROVIDERS: PCP Internal Medicine; Visit Provider Internal Medicine
DX: E66.01 Morbid (severe) obesity due to excess calories (principal); E11.9 Type 2 diabetes mellitus without complications
CPT/HCPCS: 36415; 80048; 80061

== ENCOUNTER 2022-08-04 08:11 | Outpatient (CLI) | payer OTHER, SELFPAY ==
[2022-08-04 20:14] LABS: Hemoglobin A1C 5.3 % (<5.7)
== END 2022-08-04 08:12 | disposition home or self-care (01) ==
LOC: ANHGOSHLAB 08:12
PROVIDERS: PCP Internal Medicine; Visit Provider Internal Medicine
DX: E11.9 Type 2 diabetes mellitus without complications (principal); E03.9 Hypothyroidism, unspecified
CPT/HCPCS: 36415; 83036

== ENCOUNTER → 2022-09-11 12:25 | Outpatient (CLI) | payer OTHER, SELFPAY ==
--- NOTE | ~2022-09-11 | MM_ITS ---
EXAMINATION: MM screening darrel BI w cecilio HISTORY: Screening TECHNIQUE: Craniocaudal and mediolateral oblique 3-D tomosynthesis images were obtained and synthetic 2-D images were generated. CAD analysis was submitted and interpreted. COMPARISON: Comparison to multiple prior studies sequentially, with oldest reviewed study dated 02/01. BREAST PARENCHYMAL COMPOSITION: Breast composed of scattered areas of fibroglandular density FINDINGS: There is no evidence of suspicious mass, calcification, or architectural distortion to sugg est malignancy in either breast. There has been no suspicious interval change. IMPRESSION: 1. No mammographic evidence of malignancy. 2. Recommend routine screening mammography in one year. BI-RADS Category 1: Negative Reviewed, dictated and finalized at location B. SAWYER
== END ==
PROVIDERS: PCP Internal Medicine; Visit Provider Nurse Practitioner
DX: Z12.31 Encounter for screening mammogram for malignant neoplasm of breast (principal)
CPT/HCPCS: 77063; 77067

== ENCOUNTER 2022-11-26 08:30 | Outpatient (CLI) | payer OTHER, SELFPAY ==
[2022-11-26 19:20] LABS: Alanine Aminotransferase 23 U/L (6-35); Albumin Level 4.4 g/dL (3.5-5.1); Alkaline Phosphatase 53 U/L (38-126); Anion Gap 8 mmol/L (8-16); Aspartate Amino Transferase 41 U/L (14-36); Bilirubin,Total 1.5 mg/dL (0.2-1.3); Blood Urea Nitrogen 12 mg/dL (7-17); Calcium 9.3 mg/dL (8.4-10.2); Carbon Dioxide 29 mmol/L (22-30); Chloride 101 mmol/L (98-107); Cholesterol 155 mg/dL (0-200); Estimated Glomerular Filt Rate > 60; Glucose 61 mg/dL (65-110); HDL Direct 37 mg/dL; Potassium 4.1 mmol/L (3.4-5.0); Sodium 138 mmol/L (137-145); Triglycerides 103 mg/dL (<150)
[2022-11-26 19:30] LABS: Vitamin D 25 Hydroxy 58.6 ng/mL
[2022-11-26 19:47] LABS: LDL Cholesterol Direct 91 mg/dL
[2022-11-26 19:50] LABS: Basophils Absolute Auto 0.1 K/mm3 (0.0-0.1); Basophils Percent Auto 0.7 % (0.2-1.2); Eosinophils Absolute Auto 0.3 K/mm3 (0-0.3); Eosinophils Percent Auto 4.7 % (0-4.4); Hematocrit 40.1 % (37.0-47.0); Hemoglobin 12.9 g/dL (12.0-15.0); Immature Granulocyte Absolute 0.01 K/mm3 (0.00-0.031); Immature Granulocyte Percent A 0.1 % (0-0.5); Lymphocytes Absolute Auto 2.01 K/mm3 (0.9-3.2); Lymphocytes Percent Auto 27.8 % (18.3-44.2); Mean Corpuscular HGB Conc 32.2 g/dl (32-36); Mean Corpuscular Hemoglobin 29.1 pg (26-34); Mean Corpuscular Volume 90.5 fl (80-100); Mean Platelet Volume 12.8 fl (7.4-10.4); Monocytes Absolute Auto 0.5 K/mm3 (0.1-0.6); Monocytes Percent Auto 6.9 % (2.6-8.5); Neutrophils Absolute Auto 4.3 K/mm3 (1.3-6.7); Neutrophils Percent Auto 59.8 % (45.5-73.1); Platelet Count Result 225 k/mm3 (150-375); Red Blood Count 4.43 M/mm3 (4.2-5.4); White Blood Count 7.2 K/mm3 (4.5-10.0)
[2022-11-26 20:20] LABS: Folic Acid 3.9 ng/mL (2.76->20)
== END 2022-11-26 08:31 | disposition home or self-care (01) ==
LOC: ANHGOSHLAB 08:31
PROVIDERS: PCP Internal Medicine; Visit Provider Internal Medicine
DX: E11.9 Type 2 diabetes mellitus without complications (principal); E55.9 Vitamin D deficiency, unspecified; E78.5 Hyperlipidemia, unspecified; E66.01 Morbid (severe) obesity due to excess calories
CPT/HCPCS: 36415; 80053; 80061; 82306; 82607; 82746; 83036; 85025

== ENCOUNTER 2023-02-09 08:16 | Outpatient (CLI) | payer OTHER, SELFPAY ==
[2023-02-09 18:43] LABS: Cholesterol 173 mg/dL (0-200); HDL Direct 37 mg/dL; Triglycerides 87 mg/dL (<150)
[2023-02-09 18:54] LABS: LDL Cholesterol Direct 99 mg/dL
[2023-02-09 19:50] LABS: Folic Acid 6.6 ng/mL (2.76->20)
[2023-02-11 19:28] LABS: Apolipoprotein B 92 mg/dL (<90)
== END 2023-02-09 08:17 | disposition home or self-care (01) ==
LOC: ANHGOSHLAB 08:18
PROVIDERS: PCP Internal Medicine; Visit Provider Internal Medicine
DX: Z12.11 Encounter for screening for malignant neoplasm of colon (principal); Z12.12 Encounter for screening for malignant neoplasm of rectum; E11.9 Type 2 diabetes mellitus without complications; E03.9 Hypothyroidism, unspecified; E78.5 Hyperlipidemia, unspecified; E66.9 Obesity, unspecified
CPT/HCPCS: 36415; 80061; 82172; 82607; 82746; 84443

== ENCOUNTER 2023-08-25 08:15 | Outpatient (CLI) | payer OTHER, SELFPAY ==
[2023-08-25 11:38] LABS: Hematocrit 39.2 % (37.0-47.0); Hemoglobin 12.7 g/dL (12.0-15.0); Mean Corpuscular HGB Conc 32.4 g/dl (32-36); Mean Corpuscular Hemoglobin 29.5 pg (26-34); Mean Corpuscular Volume 91.2 fl (80-100); Platelet Count Result 180 k/mm3 (150-375); Red Cell Distribution Width 13.2 % (11.5-14.5)
[2023-08-25 12:43] LABS: Alanine Aminotransferase 21 U/L (6-35); Albumin Level 4.1 g/dL (3.5-5.1); Alkaline Phosphatase 39 U/L (38-126); Anion Gap 4 mmol/L (8-16); Aspartate Amino Transferase 42 U/L (14-36); Bilirubin,Total 1.5 mg/dL (0.2-1.3); Blood Urea Nitrogen 16 mg/dL (7-17); Calcium 9.6 mg/dL (8.4-10.2); Carbon Dioxide 29 mmol/L (22-30); Chloride 105 mmol/L (98-107); Estimated Glomerular Filt Rate > 60; Glucose 81 mg/dL (65-110); Potassium 4.5 mmol/L (3.4-5.0); Sodium 138 mmol/L (137-145)
[2023-08-25 13:40] LABS: Folic Acid 7.1 ng/mL (2.76->20); Vitamin B12 > 1000.0 pg/mL (239-931)
[2023-08-25 14:26] LABS: Hemoglobin A1C 4.8 % (<5.7)
[2023-08-28 07:28] LABS: FSH 63.1 mIU/mL (***); LH 31.9 mIU/mL (***)
[2023-09-03 16:21] LABS: Estrogen 64 pg/mL
== END 2023-08-25 08:16 | disposition home or self-care (01) ==
LOC: ANHGOSHLAB 08:17
PROVIDERS: PCP Internal Medicine; Visit Provider Internal Medicine
DX: N95.1 Menopausal and female climacteric states (principal); E11.9 Type 2 diabetes mellitus without complications; E53.8 Deficiency of other specified B group vitamins; I10 Essential (primary) hypertension
CPT/HCPCS: 36415; 80053; 82607; 82672; 82746; 83001; 83002; 83036; 85027

== ENCOUNTER 2023-11-25 08:33 | Outpatient (CLI) | payer OTHER, SELFPAY ==
[2023-11-25 19:12] LABS: Basophils Percent Auto 0.6 % (0.2-1.2); Eosinophils Absolute Auto 0.1 K/mm3 (0-0.3); Eosinophils Percent Auto 2.1 % (0-4.4); Hematocrit 39.3 % (37.0-47.0); Hemoglobin 12.9 g/dL (12.0-15.0); Immature Granulocyte Absolute 0.01 K/mm3 (0.00-0.031); Immature Granulocyte Percent A 0.2 % (0-0.5); Lymphocytes Absolute Auto 1.93 K/mm3 (0.9-3.2); Lymphocytes Percent Auto 40.5 % (18.3-44.2); Mean Corpuscular HGB Conc 32.8 g/dl (32-36); Mean Corpuscular Hemoglobin 29.9 pg (26-34); Mean Corpuscular Volume 91.2 fl (80-100); Mean Platelet Volume 11.8 fl (7.4-10.4); Monocytes Absolute Auto 0.4 K/mm3 (0.1-0.6); Monocytes Percent Auto 7.8 % (2.6-8.5); Neutrophils Absolute Auto 2.3 K/mm3 (1.3-6.7); Neutrophils Percent Auto 48.8 % (45.5-73.1); Platelet Count Result 178 k/mm3 (150-375); Red Blood Count 4.31 M/mm3 (4.2-5.4); Red Cell Distribution Width 12.9 % (11.5-14.5); White Blood Count 4.8 K/mm3 (4.5-10.0)
[2023-11-25 20:44] LABS: LDL Cholesterol Direct 67 mg/dL
[2023-11-25 21:00] LABS: Alanine Aminotransferase 21 U/L (6-35); Albumin Level 4.5 g/dL (3.5-5.1); Alkaline Phosphatase 38 U/L (38-126); Anion Gap 4 mmol/L (4-12); Aspartate Amino Transferase 36 U/L (14-36); Bilirubin,Total 1.8 mg/dL (0.2-1.3); Blood Urea Nitrogen 15 mg/dL (7-17); Calcium 9.4 mg/dL (8.4-10.2); Carbon Dioxide 31 mmol/L (22-30); Chloride 104 mmol/L (98-107); Cholesterol 130 mg/dL (0-200); Estimated Glomerular Filt Rate > 60; Glucose 74 mg/dL (65-110); HDL Direct 52 mg/dL; Potassium 4.2 mmol/L (3.4-5.0); Sodium 139 mmol/L (137-145); Triglycerides 73 mg/dL (<150)
[2023-11-25 21:24] LABS: Vitamin D 25 Hydroxy 77.2 ng/mL
[2023-11-25 21:41] LABS: Folic Acid 12.4 ng/mL (2.76->20); Vitamin B12 > 1000.0 pg/mL (239-931)
[2023-11-25 21:54] LABS: Hemoglobin A1C 4.6 % (<5.7)
[2023-11-30 14:08] LABS: Apolipoprotein B 57 mg/dL
== END 2023-11-25 08:34 | disposition home or self-care (01) ==
LOC: ANHGOSHLAB 08:35
PROVIDERS: PCP Internal Medicine; Visit Provider Internal Medicine
DX: E78.5 Hyperlipidemia, unspecified (principal); E03.9 Hypothyroidism, unspecified; E11.9 Type 2 diabetes mellitus without complications; E53.8 Deficiency of other specified B group vitamins; E55.9 Vitamin D deficiency, unspecified; I10 Essential (primary) hypertension
CPT/HCPCS: 36415; 80053; 80061; 82172; 82306; 82607; 82746; 83036; 84443; 85025

== ENCOUNTER 2024-05-31 09:10 | Outpatient (CLI) | payer OTHER, SELFPAY ==
[2024-05-31 14:42] LABS: MALB Creatinine Ratio 3.4 mg/g (0-30); Microalbumin Urine Random 7.1 mg/L (0-16.7)
[2024-05-31 15:52] LABS: Alanine Aminotransferase 15 U/L (6-35); Albumin Level 4.1 g/dL (3.5-5.1); Alkaline Phosphatase 41 U/L (38-126); Anion Gap 5 mmol/L (4-12); Aspartate Amino Transferase 30 U/L (14-36); Bilirubin,Total 1.7 mg/dL (0.2-1.3); Blood Urea Nitrogen 14 mg/dL (7-17); Calcium 8.9 mg/dL (8.4-10.2); Carbon Dioxide 29 mmol/L (22-30); Chloride 105 mmol/L (98-107); Estimated Glomerular Filt Rate 58; Glucose 69 mg/dL (65-110); Potassium 4.3 mmol/L (3.4-5.0); Sodium 139 mmol/L (137-145)
[2024-05-31 19:48] LABS: Hemoglobin A1C 4.7 % (<5.7)
== END 2024-05-31 09:11 | disposition home or self-care (01) ==
LOC: ANHGOSHLAB 09:12
PROVIDERS: PCP Internal Medicine; Visit Provider Internal Medicine
DX: R74.8 Abnormal levels of other serum enzymes (principal); E11.9 Type 2 diabetes mellitus without complications
CPT/HCPCS: 36415; 80053; 82043; 83036

== ENCOUNTER 2024-11-24 10:32 | Outpatient (CLI) | payer OTHER, SELFPAY ==
--- OUTSIDE RECORDS SUMMARY | 2024-11-24 10:35 | XMS_ITS | Clinical Summary ---
Author Organization [facility] Address [address] [place] [address] Phone Care Team Providers Care Wool Grower Name Role Phone Unavailable Primary Care Provider Unavailabl e Social History Tobacco Use Types Packs/Day Years Used Date Smoking Tobacco: Never Assessed Comments Unknown Sex and Gender Information Value Date Recorded Sex Assigned at Not on file Legal Sex Female 3:05 AM PATTERN CARRIER Gender Identity Not on file Sexual Orientation Not on file Plan of Treatment Health Maintenance Due Date Last Done Comments DTAP/TDAP/TD VACCINES (1 - Tdap) 1987 HEPATITIS B VACCINES (1 of 3 - 19+ 3-dose series) 06/12 HPV/Cotest (21-29) 1989 CERVICAL CANCER SCREENING 1998 HPV/Cotest (30-65) 1998 PAP SMEAR 1998 BREAST CANCER SCREENING 2008 COLORECTAL SCREENING 2013 Colorectal Cancer Screening 2013 FIT-DNA Q 3 years 2013 FIT/FOBT Q 1 year 2013 Flex Sig/CT Colonography Q 5 years 2013 ZOSTER VACCINE (1 of 2) 2018 INFLUENZA VACCINE (#1) 2024
--- OUTSIDE RECORDS SUMMARY | 2024-11-24 10:35 | XMS_ITS | Clinical Summary ---
Author Organization [facility] Address [address] [place] [address] Care Team Providers Care Sawmill Worker Name Role Phone Dangelo Pierre DO Primary Care Provider [phone] Allergies Active Allergy Reactions Criticality Noted Date Comments Hydrocodone Itching 03/28/2019 Meloxicam Throat swelling 03/28/2019 Sulfamethoxazole-Trimethoprim Other (see comment) 03/28/2019 Pain Medications metoprolol succinate ER 50 MG 24 hr tablet Take 50 mg by mouth nightly. Active simvastatin 40 MG tablet Take 40 mg by mouth nightly at bedtime. Active vitamin D3, cholecalciferol , 1000 UNIT Tab tablet Take 1 tablet by mouth nightly. Active cetirizine 10 MG tablet Take 10 mg by mouth nightly. Active metFORMIN 1000 MG tablet Take 1,000 mg by mouth nightly. Active ibuprofen 800 MG tablet Take 800 mg by mouth 2 (two) times daily as needed for Pain. Active Social History Tobacco Use Types Packs/Day Years Used Date Smoking Tobacco: Never Smokeless Tobacco: Never Alcohol Use Standard Drinks/Week Comments No 0 (1 standard drink = 0.6 oz pur e alcohol) AUDIT-C Answer Date Recorded Frequency of Alcohol Consumption Never 03/28/2019 Average Number of Drinks Not on file 019 Frequency of Binge Drinking Not on file 03/12 Comments No Sex and Gender Information Value Date Recorded Sex Assigned at Not on file Legal Sex Female 12:36 PM CDT Gender Identity Not on file Sexual Orientation Not on file Last Filed Vital Signs Vital Sign Reading Time Taken Comments Blood Pressure 136/86 03/28/2019 4:45 PM CDT Pulse 65 03/28/2019 4:45 PM CDT Temperature 36.8 C (98.3 F) 03/28/2019 12:44 PM CDT Respiratory Rate 17 03/28/2019 4:45 PM CDT Oxygen Saturation 98% 03/28/2019 4:45 PM CDT Inhaled Oxygen Concentration - - Weight 127 kg (280 lb) 03/28/2019 12:44 PM CDT Height 165.1 cm (5' 5 ) 03/28/2019 12:44 PM CDT Body Mass Index 46.59 03/28/2019 12:44 PM CDT Plan of Treatment Health Maintenance Due Date Last Done Comments Colorectal Cancer Screening Colonoscopy (10 Years) 1968 Annual Physical 1971 Hepatitis C 1986 DTaP, Tdap and Td Vaccines ( 1 - Tdap) 1987 Hepatitis B Vaccines (1 of 3 - 19+ 3-dose series) 1987 Mammogram Screening 2008 Pneumococcal Vaccine: 50+ Ye ars (1 of 1 - PCV) 2018 Zoster Vaccines (1 of 2) 2018 COVID-19 Vaccine (1 - 2023-2 5 season) 2024 Meningococcal B Vaccine Aged Out No l onger eligible based on patient's age to complete this topic Meningococcal Vaccine Aged Out No keiry susan eligible based on patient's age to complete this topic RSV Immunizations Under 20 Months Aged Out No longer eligible based on patient's age to complete this topic Insurance Care Teams Sawmill Worker Relationship Specialty Start Date End Date Dangelo Pierre DO [address] [facility] [address] [place], [place] [id number] PCP - General INTERNAL MEDICINE 03/28/19
--- OUTSIDE RECORDS SUMMARY | 2024-11-24 10:35 | XMS_ITS | Continuity of Care Document ---
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 WITH THE PATIENT 2003 [facility] INDIVIDUAL PSYCHOTHERAPY, INSIGHT ORIENTED, BEHAVIOR MODIFYING AND/OR SUPPORTIVE, IN AN OFFICE OR OUTPATIENT FACILITY, APPROXIMATELY 45 TO 50 MINUTES RHIJ-KJ-DBSC WITH THE PATIENT 2003 [facility] INDIVIDUAL PSYCHOTHERAPY, INSIGHT ORIENTED, BEHAVIOR MODIFYING AND/OR SUPPORTIVE, IN AN OFFICE OR OUTPATIENT FACILITY, APPROXIMATELY 45 TO 50 MINUTES DZGP-OM-MKMP WITH THE PATIENT 2003 [facility] INDIVIDUAL PSYCHOTHERAPY, INSIGHT ORIENTED, BEHAVIOR MODIFYING AND/OR SUPPORTIVE, IN AN OFFICE OR OUTPATIENT FACILITY, APPROXIMATELY 45 TO 50 MINUTES VFRN-[id number]-[id number] WITH THE PATIENT 2003 [facility] [id number]|2024-11-24 10:35:00|2024-11-24 10:35:00|XMS_ITS|NATALIE MARINELLI|External Medical Summaries|[id number]|" Encounter Summary Created on: November 24, 2024 Suzan Polk : 1970 Sex: Female Author Organization [facility] Address [address] [place]: Epic Prelude ADT NEEMA SMITH [address] Care Team Providers Care Accounting Clerk Name Role Phone Unavailable Primary Care Provider Unavailabl e Encounter Details Date Type Department Care Team (Late st Contact Info) Description 01/28/1999 Outpatient Historical Bruce Medellin, DO [address] [place] [address] Cellulitis of leg (Primary Dx) Social History Tobacco Use Types Packs/Day Years Used Date Smoking Tobacco: Never Assessed Comments Unknown Sex and Gender Information Value Date Recorded Sex Assigned at Not on file Legal Sex Female 3:05 AM RESPIRATORY CARE PROGRAM DIRECTOR Gender Identity Not on file Sexual Orientation Not on file documented as of this encounter Plan of Treatment Not on file documented as of this encounter Visit Diagnoses Diagnosis Cellulitis of leg- Primary Cellulitis and abscess of leg, except foot documented in this encounter "
--- OUTSIDE RECORDS SUMMARY | 2024-11-24 10:35 | XMS_ITS | Clinical Summary ---
Author Organization [facility] Address [address] [place]: Epic Prelude ADT NEEMA SMITH [address] Care Team Providers Care Word Processor Name Role Phone Unavailable Primary Care Provider Unavailabl e Social History Tobacco Use Types Packs/Day Years Used Date Smoking Tobacco: Never Assessed Comments Unknown Sex and Gender Information Value Date Recorded Sex Assigned at Not on file Legal Sex Female 1:16 AM ASSISTANCE COORDINATOR Gender Identity Not on file Sexual Orientation [...]
[2024-11-24 12:20] LABS: Basophils Percent Auto 0.7 % (0.2-1.2); Eosinophils Absolute Auto 0.2 K/mm3 (0-0.3); Eosinophils Percent Auto 3.5 % (0-4.4); Hematocrit 38.8 % (37.0-47.0); Hemoglobin 12.5 g/dL (12.0-15.0); Lymphocytes Absolute Auto 1.79 K/mm3 (0.9-3.2); Lymphocytes Percent Auto 38.8 % (18.3-44.2); Mean Corpuscular HGB Conc 32.2 g/dl (32-36); Mean Corpuscular Hemoglobin 29.3 pg (26-34); Mean Corpuscular Volume 91.1 fl (80-100); Mean Platelet Volume 11.3 fl (7.4-10.4); Monocytes Absolute Auto 0.4 K/mm3 (0.1-0.6); Monocytes Percent Auto 7.6 % (2.6-8.5); Neutrophils Absolute Auto 2.3 K/mm3 (1.3-6.7); Neutrophils Percent Auto 49.4 % (45.5-73.1); Platelet Count Result 179 k/mm3 (150-375); Red Blood Count 4.26 M/mm3 (4.2-5.4); White Blood Count 4.6 K/mm3 (4.5-10.0)
[2024-11-24 12:54] LABS: Alanine Aminotransferase 23 U/L (6-35); Albumin Level 4.2 g/dL (3.5-5.1); Alkaline Phosphatase 34 U/L (38-126); Anion Gap 7 mmol/L (4-12); Aspartate Amino Transferase 47 U/L (14-36); Bilirubin,Total 1.5 mg/dL (0.2-1.3); Blood Urea Nitrogen 15 mg/dL (7-17); Carbon Dioxide 29 mmol/L (22-30); Chloride 105 mmol/L (98-107); Cholesterol 154 mg/dL (0-200); Estimated Glomerular Filt Rate > 60; Glucose 75 mg/dL (65-110); HDL Direct 58 mg/dL; Potassium 4.8 mmol/L (3.4-5.0); Sodium 141 mmol/L (137-145); Triglycerides 72 mg/dL (<150)
[2024-11-24 13:05] LABS: Creatinine Urine 113.6 mg/dL
[2024-11-24 13:06] LABS: LDL Cholesterol Direct 68 mg/dL
[2024-11-24 13:18] LABS: MALB Creatinine Ratio < 5.3 mg/g (0-30); Microalbumin Urine Random < 6.0 mg/L (0-16.7)
[2024-11-24 13:52] LABS: Hemoglobin A1C 4.6 % (<5.7)
[2024-11-29 15:39] LABS: Apolipoprotein B 76 mg/dL
== END 2024-11-24 10:33 | disposition home or self-care (01) ==
LOC: ANHGOSHLAB 10:33
PROVIDERS: PCP Internal Medicine; Visit Provider Internal Medicine
DX: Z13.228 Encounter for screening for other metabolic disorders (principal); E11.9 Type 2 diabetes mellitus without complications; I10 Essential (primary) hypertension; E78.2 Mixed hyperlipidemia
CPT/HCPCS: 36415; 80053; 80061; 82043; 82172; 83036; 85025

== ENCOUNTER 2025-01-15 07:47 | Outpatient (CLI) | payer OTHER, SELFPAY ==
--- NOTE | ~2025-01-15 | US_ITS ---
Limited Abdominal Sonogram: Real-time sonographic imaging of the right upper quadrant was performed. Clinical History: Abnormal serum enzyme levels Findings: The liver appears normal with no evidence of mass lesion or bile duct dilatation. Main por vale vein demonstrates normal direction of flow. The gallbladder is partially distended, and appears n ormal with no evidence of gallstone or wall thickening. The common bile duct measures 4 mm. The visu alized pancreas, aorta, and IVC are unremarkable. Right kidney unremarkable. Impression: No significant abnormality seen. Reviewed, dictated and finalized at location M. Impression: No significant abnormality seen.
== END 2025-01-15 07:48 | disposition home or self-care (01) ==
LOC: MICIMG 07:48
PROVIDERS: PCP Internal Medicine; Visit Provider Internal Medicine
DX: R74.8 Abnormal levels of other serum enzymes (principal)
CPT/HCPCS: 76705

== ENCOUNTER 2025-01-26 09:10 | Outpatient (CLI) | payer OTHER, SELFPAY ==
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
--- OUTSIDE RECORDS SUMMARY | 2025-01-26 09:14 | XMS_ITS | Clinical Summary ---
Author Organization [facility] Address [address] [place] [address] Care Team Providers Care Watch Inspector Final Movement Name Role Phone Dangelo Pierre DO Primary Care Provider [phone] Allergies Active Allergy Reactions Criticality Noted Date [...] 12:44 PM CDT Height 165.1 cm (5' 5) 03/28/2019 12:44 PM CDT Body Mass Index [...] to complete this topic Insurance Care Teams Watch Inspector Final Movement Relationship Specialty Start Date End Date Dangelo Pierre DO [address] [place], [place] [id number] PCP - General INTERNAL MEDICINE 03/28/19
[2025-01-26 18:12] LABS: Iron 87 ug/dL (37-170)
[2025-01-26 18:22] LABS: Alanine Aminotransferase 17 U/L (6-35); Albumin Level 4.3 g/dL (3.5-5.1); Alkaline Phosphatase 39 U/L (38-126); Aspartate Amino Transferase 62 U/L (14-36); Bilirubin,Total 1.2 mg/dL (0.2-1.3); Percent Iron Saturation 25 % (20-50); Total Protein 7.4 g/dL (6.3-8.2)
[2025-01-26 18:56] LABS: Ferritin 172.00 ng/mL (11.1-264)
[2025-01-26 19:56] LABS: Hepatitis B Surface Antigen Negative (Negative)
== END 2025-01-26 09:11 | disposition home or self-care (01) ==
LOC: ANHGOSHLAB 09:11
PROVIDERS: PCP Internal Medicine; Visit Provider Internal Medicine
DX: R74.8 Abnormal levels of other serum enzymes (principal)
CPT/HCPCS: 36415; 80076; 82728; 83540; 83550; 86803; 87340

== ENCOUNTER 2025-04-11 18:51 | Emergency (ER) | payer OTHER, SELFPAY ==
[2025-04-11 19:00] VITALS: BP 102/71; PULSE 76; RESP 16; TEMP 37.1; O2SAT 100
--- NOTE | 2025-04-11 19:32 | ED_ITS ---
HPI - Wound/Laceration General Chief Complaint: Wound/Laceration Stated Complaint: irritation on toe Time Seen by Provider: 04/11/25 18:52 Source: patient Mode of arrival: ambulatory Limitations: no limitations History of Present Illness HPI narrative: Patient is a 54-year-old female who presents with right 2nd toe redness and tenderness. Patient states she has had toe infections in the past. Has been soaking with Epsom salts and states the redness has improved. Patient is a diabetic and is concerned since she has feeling more run down. Related Data Home Medications ?Medication ?Instructions ?Recorded ?Confirmed ?Last Taken ?Type cetirizine 10 mg tablet (Zyrtec) 10 mg PO HS 08/10/21 03/16/25 05/13/22 History cholecalciferol (vitamin D3) 10 10 mcg PO 3XW 08/10/21 03/16/25 05/13/22 History mcg (400 unit) capsule mecobalamin (vitamin B12) 1,000 1,000 mcg PO 3XW 09/0203/16/25 Unknown History mcg chewable tablet saw palmetto 160 mg capsule 160 mg PO DAILY 04/11/25 Unknown History vit C 250 mg-vit E 90 mg-zinc 40 1 tablet PO ONCE 08/05 Unknown History mg-copper 1 [id number] capsule (Eye [facility] AREDS-2) Allergies Allergy/AdvReac Type Severity Reaction Status Date / Time meloxicam Allergy Severe Anaphylaxis Verified 04/11/25 19:26 hydrocodone Allergy Mild Rash Verified 04/11/25 19:03 nabumetone Allergy Mild Hives Verified 04/11/25 19:03 sulfamethizole Allergy Mild Back Pain Verified 04/11/25 19:03 sulfamethoxazole Allergy Mild Back Pain Verified 04/11/25 19:03 trimethoprim Allergy Mild Rash Verified 04/11/25 19:03 amoxicillin (From Augmentin) Allergy Rash Verified 04/11/25 19:03 clavulanic acid (From Allergy Rash Verified 04/11/25 19:03 Augmentin) Review of Systems Review of Systems: All systems reviewed & are unremarkable except as noted in HPI and below Constitutional: Constitutional: Denies body ache(s), Denies chills, Denies fatigue, Denies fever(s), Denies headache(s), Denies malaise and Denies weakness Eyes: Eyes: Denies blurry vision, Denies irritation and Denies loss of vision ENT: Denies otalgia, Denies headache(s), Denies nasal discharge, Denies sinus pain and Denies sore throat Cardiovascular: Cardiovascular: Denies chest pain, Denies irregular heart rhythm and Denies dyspnea Respiratory: Respiratory: Denies dyspnea Gastrointestinal: Gastrointestinal: Denies abdominal pain, Denies melena, Denies hematochezia, Denies diarrhea, Denies nausea and Denies vomiting Musculoskeletal: Musculoskeletal: Denies back pain, Denies myalgias and Denies arthralgias Integumentary/Breasts: Skin/Breast: Denies pruritus, Reports erythema and Denies rash Neurologic: Denies headache(s), Denies loss of vision and Denies weakness Psychiatric: Psychiatric: Reports no additional psychiatric complaints Endocrine: Endocrine: Denies fatigue PMFSH Past Medical History Medical History History of morbid obesity Diabetes Elevated liver enzymes B12 deficiency Morbid obesity due to excess calories GERD (gastroesophageal reflux disease) Cervical stenosis of spinal canal PCOS (polycystic ovarian syndrome) Depression Herpes Obesity Hypothyroidism Allergies Osteoarthritis Heartburn Bronchitis Asthma HTN (hypertension) PVC (premature ventricular contraction) Chicken pox Hyperglycemia HLD (hyperlipidemia) Vitamin D deficiency Surgical History Surgical History H/O breast biopsy H/O arthroscopic knee surgery History of hysterectomy H/O cone biopsy of cervix History of dilatation and curettage Family History Family History Father Family history of Alzheimer's disease Mother Renal failure Rheumatoid arthritis Renal transplant, status post Depression Hypertension Thyroid disorder Grandparent Breast cancer Uterine cancer Hypertension Depression Heart disease Cerebrovascular accident Social History Social History Social History: Caffeine-tea/soda Smoking packs per day: 0.5 Smoking cigarettes per day: 10.0 Years smoked: 10 Smoking pack-years: 5.00 Smoking status: Former smoker Tobacco type: cigarettes Second hand tobacco smoke exposure: No Smoking end date: 07/12/98 Alcohol intake: former Alcohol use details: occasional Substance use: never Do You Feel Safe in your Home?: Yes Lack of Transportation: No Lack of Food: Never True Current Housing: I Have Housing Concerned About Future Housing: No Difficulty Paying Gas/Electric Bills: No Difficulty Paying for Meds: No Currently Unemployed: No Education: Master's Degree or Higher Difficulty w/ Childcare or Family Care: No Spiritual care concerns: No Comments At time of signature, agree with nursing past medical, surgical, social and family history. There is no relevant family history pertinent to the presenting complaint. Exam Const: General: cooperative, healthy appearing, comfortable, no acute distress and well nourished Nutritional Appearance: well nourished Orientation/consciousness: patient oriented x3 Limitations: no limitations HENMT: Head: normal to inspection, normocephalic and atraumatic Ears: heari ng grossly normal bilaterally and external ears normal Face/Nose/Sinus: Normal external nose present, normal facial exam and face symmetric Face and sinus: normal facial exam and face symmetric Mouth: Yes lip normal Eyes: General: appearance normal, both eyes and all related structures Alignment and Position: alignment normal and position normal Periorbital: periorbital findings normal Eyelids: eyelids normal Pupils: Equal, round and reactive pupils present EOM: EOMs intact bilaterally Neck: Neck: normal visual inspection, full ROM and supple Chest: Chest palpation & inspection: normal inspection of the chest Resp: Effort & Inspection: normal respiratory effort and able to speak in complete sentences Auscultation: clear to auscultation bilaterally Cardio: Rate: regular rate Rhythm: regular rhythm Heart sounds: S1 normal heart sound present and S2 normal heart sound present GI: Inspection: normal to inspection Skin: General skin exam: normal color and no rashes or lesions noted Neuro: General: patient oriented x3 and moves all extremities Cranial nerves: Yes Equal, round and reactive pupils present Speech: normal speech Gait exam (Neuro): Normal gait present Extrem: General: normal to inspection, full ROM and no edema Right lower extremity: foot Details: normal capillary refill, tenderness Location: of another digit Location: the 2nd digit and at the distal phalanx, toes with normal ROM, vascular exam Details: dorsalis pedis pulse present and normal capillary refill, tendon exam Details: active flexion normal Location: of all toes and active extension normal Location: of all toes and other (erythema to distal phalanx 2nd digit); no unusual warmth Psych: Appearance: grossly normal and well kempt Mental Status: mental status grossly normal Speech and movement: Normal speech and movement present Affect: normal affect Attitude: cooperative Thought process: Normal thought process present Course Course Emergency Course: Patient is aware of diagnosis, understands and agrees to treatment plan. Anticipatory guidance given. Patient agrees to follow-up as directed and is aware of reasons to seek care at the emergency department. Portions of this record may have been created with voice recognition software Level of Care: Express Care Visit Vital Signs Vital signs: Vital Signs Temperature 37.1 C 04/11/25 19:00 Pulse Rate 76 04/11/25 19:00 Respiratory Rate 16 04/11/25 19:00 Blood Pressure 102/71 04/11/25 19:00 Pulse Oximetry 100 04/11/25 19:00 Oxygen Delivery Room Air 04/11/25 19:00 Temperature 37.1 C 04/11/25 19:00 Pulse Rate 76 04/11/25 19:00 Respiratory Rate 16 04/11/25 19:00 Blood Pressure 102/71 04/11/25 19:00 Pulse Oximetry 100 04/11/25 19:00 Oxygen Delivery Room Air 04/11/25 19:00 Reviewed MDM - Wound/Laceration MDM Narrative Medical decision making narrative: Will treat with antibiotics based on exam and history of diabetes and location of infection Pt well hydrated appearing, in no respiratory distress, hemodynamically stable. Recommend supportive care. The patient is stable at time of discharge the clinical impression was discussed and the patient was given the opportunity to ask questions, which were addressed as completely as possible given the information available at present. Anticipatory guidance and return to care precautions were discussed and the importance of primary care follow-up was stressed and encouraged. The patient voiced understanding of the plan, indications to return, and the need for follow-up. Exam findings show no acute concerns or changes Patient is appropriate for outpatient treatment and follow-up. Differential Diagnosis Differential diagnosis: Likely other (Cellulitis, paronychia, ingrown nail) Medical Records Attestation: I reviewed the patient's medical records. Discharge Plan Discharge Clinical Impression: Cellulitis Qualifiers: Site of cellulitis: extremity Site of cellulitis of extremity: toe Laterality: right Qualified Code(s): L03.031 - Cellulitis of right toe Patient Disposition: Home Condition: Stable Instructions: Cellulitis (ED) Additional Instructions: Please follow up with your Primary Care Doctor within 48-72 hours - call for an appointment. Rest and elevate affected area; apply moist heat 3-4 times daily for 10-15 minutes. Clean with soap and water only; Avoid using alcohol and peroxide. Elevate the affected area if possible Please take Antibiotics as directed. For pain, you may take: Tylenol 650-1000mg by mouth every 4-6 hours. Do not exceed 4000mg in 24 hours. Advil (Ibuprofen) 600 mg by mouth every 6 hours. Do not exceed 2400mg in 24 hours. 8 AM: Tylenol 11 AM: Ibuprofen 2 PM: Tylenol 5 PM: Ibuprofen 8 PM: Tylenol 11 PM: Ibuprofen 2 AM: Tylenol 5 AM: Ibuprofen If you experience any worsening redness, swelling, streaking (red lines), fever or chills please go to the ER Patient Language: Guyanese Prescriptions: New cephalexin 500 mg capsule 500 mg PO QID 7 Days Qty: 28 0RF No Action cetirizine [Zyrtec] 10 mg Tablet 10 mg PO HS cholecalciferol (vitamin D3) 10 mcg (400 unit) Capsule 10 mcg PO 3XW Rx Instructions: M,W, [facility] AREDS-2 250-90-40-1 mg capsule 1 tablet PO ONCE saw palmetto 160 mg capsule 160 mg PO DAILY tirzepatide 7.5 mg/0.5 mL pen injector 7.5 mg subcut WEEKLY Qty: 2 3RF Osphena 60 mg tablet 60 mg PO DAILY Qty: 90 3RF Rx Instructions: must administer with food, preferably a high-fat meal mecobalamin (vitamin B12) 1,000 mcg tablet,chewable 1,000 mcg PO 3XW rosuvastatin 20 mg tablet See Rx Instructions .ROUTE .COMPLEX Qty: 90 1RF Dose Instruction: TAKE 1 TABLET DAILY Rx Instructions: TAKE 1 TABLET DAILY metoprolol succinate 50 mg tablet extended release 24 hr 50 mg PO DAILY Qty: 90 1RF Follow-up/Referrals: Ted Leggett DPM [Physician, Podiatry] - 3 Days Dangelo Pierre DO [Primary Care Provider, Internal Medicine] - 3 Days Time of Disposition: 19:37
== END 2025-04-11 19:43 | disposition home or self-care (01) ==
PROVIDERS: Emergency Provider Nurse Practitioner Family; PCP Internal Medicine
DX: L03.031 Cellulitis of right toe (principal); E11.9 Type 2 diabetes mellitus without complications; Z79.85 Long-term (current) use of injectable non-insulin antidiabetic drugs; I10 Essential (primary) hypertension; E78.5 Hyperlipidemia, unspecified; J45.909 Unspecified asthma, uncomplicated; E03.9 Hypothyroidism, unspecified; E28.2 Polycystic ovarian syndrome; K21.9 Gastro-esophageal reflux disease without esophagitis; E66.01 Morbid (severe) obesity due to excess calories; Z68.24 Body mass index [BMI] 24.0-24.9, adult; M19.90 Unspecified osteoarthritis, unspecified site; R12 Heartburn; E55.9 Vitamin D deficiency, unspecified; E53.8 Deficiency of other specified B group vitamins; Z87.891 Personal history of nicotine dependence
CPT/HCPCS: 99213; G0463

== ENCOUNTER 2025-06-11 08:12 | Outpatient (CLI) | payer OTHER, SELFPAY ==
--- OUTSIDE RECORDS SUMMARY | 2025-06-11 08:22 | XMS_ITS | Clinical Summary ---
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
--- OUTSIDE RECORDS SUMMARY | 2025-06-11 08:22 | XMS_ITS | Clinical Summary ---
Author Organization [facility] Address [address] 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
--- OUTSIDE RECORDS SUMMARY | 2025-06-11 08:22 | XMS_ITS | Encounter Summary ---
Author Organization [facility] Address [address] 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
--- OUTSIDE RECORDS SUMMARY | 2025-06-11 08:22 | XMS_ITS | Clinical Summary ---
Author Organization [facility] Address [address] [place] [address] Care Team Providers Care Drafting Teacher Name Role Phone DeannaDangelo rios DO Primary Care Provider [phone] Allergies Active Allergy Reactions Criticality Noted Date [...] of 2) 2018 COVID-19 Vaccine (1 - 2024-2 6 season) 2025 Influenza Adult (#1) 2025 Hepatitis A Vaccines Aged Out No long er eligible based on patient's age to complete this topic Meningococcal B Vaccine Aged Out No l onger eligible based on patient's age to complete this topic Meningococcal Vaccine Aged Out No keiry susan eligible based on patient's age to complete this topic RSV Immunizations Under 20 Months Aged Out No longer eligible based on patient's age to complete this topic Insurance Care Teams Drafting Teacher Relationship Specialty Start Date End Date Dangelo Pierre DO [address] [place] [address] PCP - General INTERNAL MEDICINE 03/28/19
[2025-06-11 19:56] LABS: Alanine Aminotransferase 17 U/L (6-35); Albumin Level 3.9 g/dL (3.5-5.1); Alkaline Phosphatase 42 U/L (38-126); Aspartate Amino Transferase 31 U/L (14-36); Bilirubin,Total 1.0 mg/dL (0.2-1.3); Total Protein 6.8 g/dL (6.3-8.2)
== END 2025-06-11 08:13 | disposition home or self-care (01) ==
LOC: ANHGOSHLAB 08:12
PROVIDERS: PCP Internal Medicine; Visit Provider Internal Medicine
DX: R74.8 Abnormal levels of other serum enzymes (principal)
CPT/HCPCS: 36415; 80076